=== PATIENT | female | born 1990 | race Caucasian/White ===

== ENCOUNTER 2017-06-24 14:18 | Emergency (ER) | payer MEDICAID ==
[~2017-06-24] VITALS: Ht 165.1 cm; Wt 108.9 kg
[~2017-06-24 14:18] MED LIST: MEDROL 4MG. DOSE4 MG PO; ORTHO-CYCLEN 21 EACH PO; ZOFRAN4 MG PO
--- OUTSIDE RECORDS SUMMARY | 2017-06-24 14:22 | External Medical Summary Rpt | CCD ---
Author Author JOSETTE Address Unknown Phone Purpose Continuity of Care Document - through 2016
--- OUTSIDE RECORDS SUMMARY | 2017-06-24 14:22 | External Medical Summary Rpt | CCD ---
Author Author [employer] Organization [employer] Address Unknown Phone Unavailable Purpose Continuity of Care Document - through 2016
--- OUTSIDE RECORDS SUMMARY | 2017-06-24 14:23 | External Medical Summary Rpt ---
Author Author MARIUSZ Dai, MARIUSZ Dai Organization [employer] Address Unknown Phone Unavailable
--- OUTSIDE RECORDS SUMMARY | 2017-06-24 14:23 | External Medical Summary Rpt | CCD ---
Author Author , MARIUSZ Organization [employer] Address Unknown Phone [email or web address] Immunization Name Date Rout CVX Reac Dose Comm Prov Is Faci e tion ent ider Refu lity Give sed n Infl 09-0 150 0.5 Hist [facility] No [facility] 7-20 mL oric JAVIER AID0 a 17 al AYMA 3938 Quad Info N Inj rmat ion - Sour ce Unsp ecif ied Infl 11-1 Intr 140 0.5 Hist K[facility] No [facility] 2-20 amus mL oric JAVIER AID0 a, 16 cula al AYMA 3938 P-Fr r Info N ee rmat ion - Sour ce Unsp ecif ied Td 04-1 Intr 9 999 Hist H149 No H149 (chaka 0-20 amus oric lt), 03 cula al r Info adso rmat rbed ion - Sour ce Unsp ecif ied
--- OUTSIDE RECORDS SUMMARY | 2017-06-24 14:23 | External Medical Summary Rpt | CCD ---
Author Author , MARIUSZ Organization [employer] Address Unknown Phone [email or web address] Immunization Name Date Rout CVX Reac Dose [...]
[2017-06-24] MEDS ORDERED: KEFLEX 500MG.500 MG PO (15:02)
--- NOTE | 2017-06-24 15:03 | Urgent Treatment Center Report ---
History of Present Issue Date/Time Seen by Provider 06/24/17 0793 Visit Reason Pt arrived:Walked Presenting Problem:PT STATES SHE WAS RAKING LEAVES SUNDAY AND SAT DOWN AND WENT TO STAND UP AND HAD SHOOTING PAIN DOWN BACK OF LEGS AND SINCE THEN HAS HAD LOWER BACK PAIN AND DOWN AROUND HER HIPS, Location if Accident: Onset of symptoms date/time:/ or onset unknown for:MEDICAL HX UNKNOWN Have you (or family members/close friends) recently traveled outside the [place]? N If Yes, where/when: Have you had exposure to infectious disease within the past month? TB? Other? Specify: Source patient, RN notes reviewed Exam Limitations no limitations Comment 27-year-old female presents today for low back pain. Patient states she was working on Sunday and noticed an increase in back pain does report chronic back pain. Patient denies burning with voiding frequent urination or painful urination. ALLERGIES Coded Allergies: No Known Allergies (09/15/16) Home Medications Active Scripts Methylprednisolone (Medrol Dose Zayra) 4 MG PO UD #1 ZAYRA Prov: 11/27/16 Reported Medications Norgestimate-Ethinyl Estradiol (Ortho-Cyclen 28 Tablet) 1 EACH PO DAILY History Medical History General CAD? No Angina: No [place]: No Hypertension? No Hyperlipidemia? No CHF? No DVT? No PE? No COPD? No Asthma? No Anemia? No GERD? No Gastric ulcers? No GI Bleed? No Hernia? No Thyroid Problems? No Hypothyroidism? No CVA? No Seizures? No Diabetes? No Renal Insuffiency? No UTI? No Stones? No GB Disease: No Nephritic Syndrome? No Asplenia? No Hepatitis? No Sickle Cell Disease? No Arthritis? No Migraines? No Cataracts? No Glaucoma? No MRSA? No HIV? No TB? No Anxiety? No Depression? No Cancer? No More? 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 2 or more SIRS Criteria Met? B/P:136/88 MAP:104 Creatinine >2.0? UA output<0.5ml/kg/hr for 2 hrs? Platelet count >100,000? Lactate >2.0mmol/1? INR >1.2 or PTT > than 60 sec? Evidence of Organ Dysfunction? Provider documented clinical suspician of infection? Sepsis Criteria Count: 1 Sepsis Risk: General Appearance normal appearance, WD/WN, no apparent distress Respiratory Status Yes: trachea midline, chest symmetrical, non tender chest. No: respiratory distress. Cardiovascular normal exam, regular rate/rhythm Gastrointestinal normal bowel sounds, normal exam, non tender, soft, cva tenderness Neurologic alert, normal exam, oriented x 3 Medical Decision Making LABS/Meds/Orders Pt receiving controlled substance in ED? No Results/Orders Orders Procedure Date/time Status UT URINE 06/24 144 Active [facility] URINE DIPSTICK 06/24 144 Active Departure Departure Time of Disposition 1501 Disposition DC Home or Self Care(routine) Clinical Impression Primary Impression: Urinary tract infection Qualifiers: Urinary tract infection type: site unspecified Hematuria presence: without hematuria Qualified Code: N39.0 - Urinary tract infection, site not specified Condition STABLE Referrals Rafael BANEGAS,A.C. (Family) Patient Instructions Urinary Tract Infection Additional Instructions Encourage fluids Tylenol or Motrin as needed for pain or fever Follow-up with primary care in 2 days to get culture results If symptoms worsen or do not improve return or be seen in the ER Discharge Counseling Counseled pt/family regarding diagnosis, test results, medications/RX, home care, follow up needs Prescriptions Current Visit Scripts CEPHALEXIN (Keflex 500MG Capsule) 500 MG PO BID 10 Days at 1500
--- NOTE | 2017-06-24 15:03 | Urgent Treatment Center Report ---
History of Present Issue Date/Time Seen by Provider 06/24/17 4729 Visit Reason Pt arrived:Walked Presenting Problem:PT STATES SHE WAS RAKING LEAVES SUNDAY AND SAT DOWN AND WENT TO STAND UP AND HAD SHOOTING PAIN DOWN BACK OF LEGS AND SINCE THEN HAS HAD LOWER BACK PAIN AND DOWN AROUND HER HIPS, Location if Accident: Onset of symptoms date/time:/ or onset unknown for:MEDICAL HX UNKNOWN Have you (or family members/close friends) recently traveled outside the [place]? N If Yes, where/when: Have you had exposure to infectious disease within the past month? TB? Other? Specify: Source patient, RN notes reviewed Exam Limitations no limitations Comment 27-year-old female presents today for low back pain. Patient states she was working on Sunday and noticed an increase in back pain does report chronic back pain. Patient denies burning with voiding frequent urination or painful urination. ALLERGIES Coded Allergies: No Known Allergies (09/15/16) Home Medications Active Scripts Methylprednisolone (Medrol Dose Zayra) 4 MG PO UD #1 ZAYRA Prov: 11/27/16 Reported Medications Norgestimate-Ethinyl Estradiol (Ortho-Cyclen 28 Tablet) 1 EACH PO DAILY History Medical History General CAD? No Angina: No [place]: No Hypertension? No Hyperlipidemia? No CHF? No DVT? No PE? No COPD? No Asthma? No Anemia? No GERD? No Gastric ulcers? No GI Bleed? No Hernia? No Thyroid Problems? No Hypothyroidism? No CVA? No Seizures? No Diabetes? No Renal Insuffiency? No UTI? No Stones? No GB Disease: No Nephritic Syndrome? No Asplenia? No Hepatitis? No Sickle Cell Disease? No Arthritis? No Migraines? No Cataracts? No Glaucoma? No MRSA? No HIV? No TB? No Anxiety? No Depression? No Cancer? No More? 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 2 or more SIRS Criteria Met? B/P:136/88 MAP:104 Creatinine >2.0? UA output<0.5ml/kg/hr for 2 hrs? Platelet count >100,000? Lactate >2.0mmol/1? INR >1.2 or PTT > than 60 sec? Evidence of Organ Dysfunction? Provider documented clinical suspician of infection? Sepsis Criteria Count: 1 Sepsis Risk: General Appearance normal appearance, WD/WN, no apparent distress Respiratory Status Yes: trachea midline, chest symmetrical, non tender chest. No: respiratory distress. Cardiovascular normal exam, regular rate/rhythm Gastrointestinal normal bowel sounds, normal exam, non tender, soft, cva tenderness Neurologic alert, normal exam, oriented x 3 Medical Decision Making LABS/Meds/Orders Pt receiving controlled substance in ED? No Results/Orders Orders Procedure Date/time Status UT URINE 06/24 144 Active [facility] URINE DIPSTICK 06/24 144 Active Departure Departure Time of Disposition 1501 Disposition DC Home or Self Care(routine) Clinical Impression Primary Impression: Urinary tract infection Qualifiers: Urinary tract infection type: site unspecified Hematuria presence: without hematuria Qualified Code: N39.0 - Urinary tract infection, site not specified Condition STABLE Referrals Rafael BANEGAS,A.C. (Family) Patient Instructions Urinary Tract Infection Additional Instructions Encourage fluids Tylenol or Motrin as needed for pain or fever Follow-up with primary care in 2 days to get culture results If symptoms worsen or do not improve return or be seen in the ER Discharge Counseling Counseled pt/family regarding diagnosis, test results, medications/RX, home care, follow up needs Prescriptions Current Visit Scripts CEPHALEXIN (Keflex 500MG Capsule) 500 MG PO BID 10 Days at 1504
[2017-06-24 15:04] LABS: UTC URINE PREGNANCY NEGATIVE (NEG)
[2017-06-24 15:05] LABS: URINE BILIRUBIN - DIPSTICK NEGATIVE (NEG); URINE BLOOD 2+ (NEG)
[2017-06-24 15:06] VITALS: BP 136/88
== END 2017-06-24 15:07 | disposition home or self-care (01) ==
LOC: UTC 14:18
PROVIDERS: Nurse Practitioner Family
DX: N39.0 Urinary tract infection, site not specified (principal); G89.29 Other chronic pain; M54.9 Dorsalgia, unspecified; F17.210 Nicotine dependence, cigarettes, uncomplicated